=== PATIENT | male | born 1970 | race Caucasian/White ===

== ENCOUNTER 2016-10-15 01:40 | Emergency (ER) | payer OTHER ==
[~2016-10-15] VITALS: Ht 177.8 cm; Wt 84.8 kg
[2016-10-15 01:48] VITALS: BP 159/100
--- NOTE | 2016-10-15 03:09 | NUR ---
PT TAKEN TO [facility]
--- NOTE | 2016-10-15 03:27 | NUR ---
Dr. Mclean evaluating patient
--- NOTE | 2016-10-15 03:33 | NUR ---
46Y/M PATIENT PRESENTS TO ED WITH C/O FEVER AND CHILLS X 1 WK . PT STATES BODYACHES, FEVER, CHILLLS, SORETHROAT, LOSS OF APPETITE. BODYWEAKNESS, FOR 2 WEEKS, HE TOOK IBUPROFEN AT 2130. SKIN IS PINK/WARM/DRY; AAOX4 WITH EVEN AND STEADY GAIT; LUNGS CLEAR BL; HR EVEN AND REGULAR; PT DENIES ANY FEVER, CP, SOB, OR COUGH AT THIS TIME; PATIENT STATES PAIN OF 4/10 AT THIS TIME; VSS; PATIENT POSITIONED FOR COMFORT; HOB ELEVATED; BEDRAILS UP X2; BED DOWN. ER MD MADE AWARE OF PT STATUS.
[2016-10-15] MEDS ORDERED: NACL 0.9% 2,000 ML IV ONE (03:40)
[2016-10-15 03:59] LABS: BASOPHILS # (AUTO) 0.2 K/uL (0.00-0.22); BASOPHILS % (AUTO) 1.1 % (0.0-2.0); EOSINOPHILS # (AUTO) 0.1 K/uL (0-0.4); EOSINOPHILS % (AUTO) 0.8 % (0.0-4.0); HEMATOCRIT 46.5 % (36-52); HEMOGLOBIN 15.6 g/dL (12.0-18.0); LYMPHOCYTES # (AUTO) 2.2 K/uL (2.0-11.5); LYMPHOCYTES % (AUTO) 16.1 % (20.5-51.1); MEAN CORPUSCULAR HEMOGLOBIN 28 pg (27-31); MEAN CORPUSCULAR HGB CONC 33 g/dL (33-37); MEAN CORPUSCULAR VOLUME 84 fL (80-94); MONOCYTES # (AUTO) 1.3 K/uL (0.8-1.0); MONOCYTES % (AUTO) 9.5 % (1.7-9.3); NEUTROPHILS # (AUTO) 10.1 K/uL (1.8-7.7); NEUTROPHILS % (AUTO) 72.5 % (42.2-75.2); PLATELET COUNT (AUTO) 383 K/uL (140-450); RED BLOOD CELL COUNT(AUTO) 5.56 MIL/uL (4.20-6.10); RED CELL DISTRIBUTION WIDTH 12.6 % (11.6-13.7); WHITE BLOOD COUNT (AUTO) 13.9 K/uL (4.8-10.8)
[2016-10-15 04:09] LABS: AMPHETAMINE, URINE POS. ng/ml (NEG <=1000); BARBITURATE, URINE NEG. ng/ml (NEG <=200); BENZODIAZEPINE, URINE NEG. ng/mL (NEG <=200); CANNABINOID, URINE NEG. ng/mL (NEG <=50); COCAINE, URINE NEG. ng/mL (NEG <=300); OPIATE, URINE NEG. ng/mL (NEG <=2000); PHENCYCLIDINE SCREEN,URINE NEG. ng/mL (NEG <=25)
[2016-10-15 04:15] LABS: ALBUMIN 4.5 g/dL (3.4-5.0); ANION GAP 13.5 (8-16); CALCIUM 9.7 mg/dL (8.5-10.1); CARBON DIOXIDE 31.2 mmol/L (21-32); CREATININE 1.1 mg/dL (0.6-1.3); POTASSIUM 3.7 mmol/L (3.5-5.1); TOTAL BILIRUBIN 0.6 mg/dL (0.0-1.0); TOTAL PROTEIN, SERUM 8.4 g/dL (6.4-8.2)
--- NOTE | 2016-10-15 05:45 | NUR ---
BP 166/109, DR. MIKE NOTIFIED.
--- NOTE | 2016-10-15 06:32 | NUR ---
IV removed, catheter intact and site benign. Applied folded 4x4 gauze and tape to stop bleeding.
[2016-10-15 06:35] VITALS: BP 157/105
--- NOTE | 2016-10-15 06:35 | NUR ---
Patient discharged with v/s stable. Written and verbal after care instructions given and explained. Patient alert, oriented and verbalized understanding of instructions. Ambulatory with steady gait. All questions addressed prior to discharge. ID band removed. Patient advised to follow up with PMD. Rx of MOTRIN 800MG TAB 1 TAB 3 TIMES A DAY BY MOUTH, HYDROCHLOROTHIAZIDE 25MG TABLET 1 TAB ONCE A DAY IN THE MORNING BY MOUTH given. Patient educated on indication of medication including possible reaction and side effects. Opportunity to ask questions provided and answered. Addendum: 10/15/16 at [address] MIKE AWARE BP 157/105.
== END 2016-10-15 06:35 | disposition home or self-care (01) ==
LOC: MED 01:40
DX: J06.9 Acute upper respiratory infection, unspecified (principal); I10 Essential (primary) hypertension; R06.00 Dyspnea, unspecified; F15.20 Other stimulant dependence, uncomplicated; F17.200 Nicotine dependence, unspecified, uncomplicated
CPT/HCPCS: 36415; 71020; 80053; 80305; 81002; 83605; 83880; 84443; 84484; 85025; 86703; 87040; 87804; 93005; 96360; 99285; J7030

== ENCOUNTER 2016-11-18 11:46 | Emergency (ER) | payer OTHER ==
[~2016-11-18] VITALS: Ht 175.3 cm; Wt 108.9 kg
[2016-11-18 12:14] VITALS: BP 136/73
--- NOTE | 2016-11-18 13:26 | NUR ---
PATIENT PRESENTS TO ED WITH RECTAL PAIN X2 DAYS WITH SWELLING .PT STATES PAIN IS THROBBING. ENIES ANY MEDICAL HX;PT TOOK MOTRIN BUT DIDN'T HELP W/ THE PAIN;DENIES N/V/D; SKIN IS PINK/WARM/DRY; AAOX4 WITH EVEN AND STEADY GAIT; LUNGS CLEAR BL; HR EVEN AND REGULAR; PT DENIES ANY FEVER, CP, SOB, OR COUGH AT THIS TIME; PATIENT STATES PAIN OF 9/10 AT THIS TIME; PATIENT POSITIONED FOR COMFORT; HOB ELEVATED; BEDRAILS UP X2; BED DOWN. ER MD WILL BE NOTIFIED.
--- NOTE | 2016-11-18 13:35 | NUR ---
DR PEREZ AT BEDSIDE.
[2016-11-18] MEDS ORDERED: KETOROLAC 60 MG/2 ML VIAL IM ONE (13:40)
--- NOTE | 2016-11-18 14:08 | NUR ---
Patient discharged with v/s stable. Written and verbal after care instructions given and explained. Patient alert, oriented and verbalized understanding of instructions. Ambulatory with steady gait. All questions addressed prior to discharge. ID band removed. Patient advised to follow up with PMD. Rx of NORCO AND COLACE given. Patient educated on indication of medication including possible reaction and side effects. Opportunity to ask questions provided and answered.
[2016-11-18 14:16] VITALS: BP 127/69
== END 2016-11-18 14:08 | disposition home or self-care (01) ==
LOC: MED 11:46
DX: K64.4 Residual hemorrhoidal skin tags (principal)
CPT/HCPCS: 96372; 99283; J1885

== ENCOUNTER 2017-01-04 16:59 | Emergency (ER) | payer OTHER ==
[~2017-01-04] VITALS: Ht 180.3 cm; Wt 103.4 kg
[2017-01-04 17:12] VITALS: BP 138/98
--- NOTE | 2017-01-04 19:42 | NUR ---
PATIENT AMBULATED TO ER BED 5.
--- NOTE | 2017-01-04 19:49 | NUR ---
46 Y/O M W/C/O ALLERGIC REACTION TO A [employer] PL[employer] X TODAY. PER PT HE TOOK BENADRYL 50 MG AT HOME AROUND 1600. VSS. KOMAL PADRON MADE AWARE.
--- NOTE | 2017-01-04 19:55 | NUR ---
PATIENT BEING EVALUATED BY DR. PARMAR.
[2017-01-04] MEDS ORDERED: TETRACAINE 0.5% OPTH SOL 2 ML BTL OP ONE (20:10)
[2017-01-04] MEDS ORDERED: TOBRAMYCIN/DEXAMETHASONE OPTH OINT 3.5 GM TUBE OP SCH (20:15)
[2017-01-04] MEDS ORDERED: TETRACAINE 0.5% OPTH SOL 2 ML BTL ONE (20:40)
[2017-01-04 21:48] VITALS: BP 124/82
--- NOTE | 2017-01-04 21:48 | NUR ---
Patient discharged with v/s stable. Written and verbal after care instructions given and explained. Patient alert, oriented and verbalized understanding of instructions. Ambulatory with steady gait. All questions addressed prior to discharge. ID band removed. Patient advised to follow up with PMD OR RETURN TO ER IF CONDITION WORSENS. Rx of TOBRADEX given. Patient educated on indication of medication including possible reaction and side effects. Opportunity to ask questions provided and answered.
== END 2017-01-04 21:48 | disposition home or self-care (01) ==
LOC: MED 16:59
DX: H10.213 Acute toxic conjunctivitis, bilateral (principal)
CPT/HCPCS: 99283

== ENCOUNTER 2017-03-13 13:35 | Outpatient (CLI) | payer OTHER ==
[2017-03-13 14:03] LABS: BASOPHILS # (AUTO) 0.1 K/uL (0.00-0.22); BASOPHILS % (AUTO) 1.5 % (0.0-2.0); EOSINOPHILS # (AUTO) 0.8 K/uL (0-0.4); EOSINOPHILS % (AUTO) 8.5 % (0.0-4.0); HEMATOCRIT 46.3 % (36-52); HEMOGLOBIN 15.1 g/dL (12.0-18.0); LYMPHOCYTES # (AUTO) 2.5 K/uL (2.0-11.5); LYMPHOCYTES % (AUTO) 25.1 % (20.5-51.1); MEAN CORPUSCULAR HEMOGLOBIN 28 pg (27-31); MEAN CORPUSCULAR HGB CONC 33 g/dL (33-37); MEAN CORPUSCULAR VOLUME 85 fL (80-94); MONOCYTES # (AUTO) 1.5 K/uL (0.8-1.0); NEUTROPHILS % (AUTO) 49.9 % (42.2-75.2); PLATELET COUNT (AUTO) 225 K/uL (140-450); RED BLOOD CELL COUNT(AUTO) 5.47 MIL/uL (4.20-6.10); WHITE BLOOD COUNT (AUTO) 9.9 K/uL (4.8-10.8)
[2017-03-13 14:10] LABS: ALBUMIN 3.7 g/dL (3.4-5.0); ANION GAP 9.2 (8-16); CARBON DIOXIDE 30.5 mmol/L (21-32); CREATININE 0.9 mg/dL (0.7-1.3); POTASSIUM 3.7 mmol/L (3.5-5.1); TOTAL BILIRUBIN 0.3 mg/dL (0.0-1.0)
== END 2017-03-13 19:44 | disposition home or self-care (01) ==
LOC: MLB 13:35
PROVIDERS: ATTEND Family Medicine Geriatric Medicine
DX: F10.10 Alcohol abuse, uncomplicated (principal)
CPT/HCPCS: 36415; 80053; 82150; 83690; 85025

== ENCOUNTER 2017-04-08 02:40 | Emergency (ER) | payer OTHER ==
[~2017-04-08] VITALS: Ht 177.8 cm; Wt 108.1 kg
[2017-04-08 02:58] VITALS: BP 144/93
--- NOTE | 2017-04-08 03:04 | NUR ---
ER AT BEDSIDE
--- NOTE | 2017-04-08 03:04 | NUR ---
PT AMBULATED TO ER BED 04
[2017-04-08] MEDS ORDERED: KETOROLAC 60 MG/2 ML VIAL IM ONE (03:10)
[2017-04-08 03:12] LABS: APPEARANCE,URINE CLEAR (CLEAR); BILIRUBIN,URINE NEGATIVE (NEGATIVE); BLOOD, URINE NEGATIVE (NEGATIVE); COLOR,URINE YELLOW (YELLOW); LEUKOCYTE ESTERASE ,URINE NEGATIVE (NEGATIVE); NITRITE, URINE NEGATIVE (NEGATIVE); PH,URINE 5.5 (5.0-9.0); UGLUCOSE NEGATIVE (NEGATIVE)
--- NOTE | 2017-04-08 03:12 | NUR ---
47Y/M PT. PRESENTS TO ED WITH C/O RT. FLANK PAIN ON AND OFF X 2 WKS. DENIES N/V/D OR FEVER. AAO X4, AMBULATORY WITH STEADY GAIT. RESPIRATIONS ROOM AIR, EVEN AND UNLABORED. ABDOMEN ROUND AND DNON DISTENDED. ACTIVE BS X4, C/O PAIN /. VSS, ER MADE AWARE OF PT. STATUS.
[2017-04-08 03:21] LABS: HEMATOCRIT 43.8 % (36-52); HEMOGLOBIN 14.3 g/dL (12.0-18.0); MEAN CORPUSCULAR HEMOGLOBIN 27 pg (27-31); MEAN CORPUSCULAR HGB CONC 33 g/dL (33-37); MEAN CORPUSCULAR VOLUME 84 fL (80-94); PLATELET COUNT (AUTO) 233 K/uL (140-450); RED CELL DISTRIBUTION WIDTH 13.3 % (11.6-13.7); WHITE BLOOD COUNT (AUTO) 8.1 K/uL (4.8-10.8)
[2017-04-08 03:29] LABS: RBC,URINE 0-5 (RARE) /HPF (0-5); WBC,URINE 0-5 (RARE) /HPF (0-5)
[2017-04-08 03:31] LABS: ANION GAP 12.9 (8-16); CARBON DIOXIDE 29.7 mmol/L (21-32); CREATININE 0.9 mg/dL (0.7-1.3); POTASSIUM 3.6 mmol/L (3.5-5.1)
[2017-04-08 03:34] LABS: EOSINOPHILS % (MANUAL) 4 % (0-4); LYMPHOCYTES % (MANUAL) 42 % (20-46); MONOCYTES % (MANUAL) 5 % (5-12)
--- NOTE | 2017-04-08 03:35 | NUR ---
US AT BEDSIDE.
[2017-04-08 03:36] LABS: TOTAL BILIRUBIN 0.4 mg/dL (0.0-1.0)
[2017-04-08 04:14] VITALS: BP 140/95
--- NOTE | 2017-04-08 04:14 | NUR ---
Patient discharged with v/s stable. Written and verbal after care instructions given and explained. Patient verbalized understanding. Ambulatory with steady gait. All questions addressed prior to discharge. Advised to follow up with PMD.
== END 2017-04-08 04:14 | disposition home or self-care (01) ==
LOC: MED 02:40
DX: K76.0 Fatty (change of) liver, not elsewhere classified (principal); F10.99 Alcohol use, unspecified with unspecified alcohol-induced disorder
CPT/HCPCS: 36415; 76705; 80053; 81001; 83690; 85025; 96372; 99285; J1885; Q0092

== ENCOUNTER 2017-04-28 23:15 | Emergency (ER) | payer OTHER ==
[~2017-04-28] VITALS: Ht 175.3 cm; Wt 112.5 kg
[2017-04-28 23:19] VITALS: BP 147/100
--- NOTE | 2017-04-28 23:23 | NUR ---
Patient to bed 11.
[2017-04-28] MEDS ORDERED: NACL 0.9% 1,000 ML IV ONE (23:35)
[2017-04-28] MEDS ORDERED: KETOROLAC 30 MG/ML VIAL IVP ONE (23:35)
--- NOTE | 2017-04-28 23:50 | NUR ---
47/M PRESENTS TO ER C/O LOWER ABDOMINAL PAIN. PT STATES PAIN IN INGUINAL AREA AND LOWER ABDOMEN X4 DAYS. ABDOMEN IS ROUND, SOFT AND TENDER IN LLQ&RLQ, BS ACTIVE X4. PT DENIES N/V/D, FEVER, URINARY FREQUENCY/ BURNING. NO REDNESS OR SWELLING OF AFFECTED AREA NOTED AT THIS TIME. PT TOOK 800MG IBUPROFEN WITH MILD RELIEF. AA&O X4, VSS, ER MD NOTIFED OF PT STATUS.
[2017-04-28 23:59] LABS: HEMOGLOBIN 14.8 g/dL (12.0-18.0); MEAN CORPUSCULAR HEMOGLOBIN 28 pg (27-31); MEAN CORPUSCULAR HGB CONC 33 g/dL (33-37); MEAN CORPUSCULAR VOLUME 85 fL (80-94); PLATELET COUNT (AUTO) 308 K/uL (140-450); RED BLOOD CELL COUNT(AUTO) 5.27 MIL/uL (4.20-6.10); RED CELL DISTRIBUTION WIDTH 13.4 % (11.6-13.7); WHITE BLOOD COUNT (AUTO) 8.9 K/uL (4.8-10.8)
[2017-04-29 00:14] LABS: BASOPHILS % (MANUAL) 1 % (0-2); EOSINOPHILS % (MANUAL) 5 % (0-4); LYMPHOCYTES % (MANUAL) 33 % (20-46); MONOCYTES % (MANUAL) 4 % (5-12)
[2017-04-29 00:16] LABS: ANION GAP 14.5 (8-16); CARBON DIOXIDE 28.4 mmol/L (21-32); CREATININE 0.9 mg/dL (0.7-1.3); POTASSIUM 3.9 mmol/L (3.5-5.1)
[2017-04-29 00:20] LABS: ALBUMIN 4.1 g/dL (3.4-5.0); TOTAL BILIRUBIN 0.3 mg/dL (0.0-1.0)
--- NOTE | 2017-04-29 01:11 | NUR ---
PT IN BED, COMFORT NEEDS MET AT THIS TIME, AWAITING RESULTS OF CT SCAN.
[2017-04-29 02:03] VITALS: BP 159/96
--- NOTE | 2017-04-29 02:04 | NUR ---
Patient discharged with v/s stable. Written and verbal after care instructions given and explained. Patient alert, oriented and verbalized understanding of instructions. Ambulatory with steady gait. All questions addressed prior to discharge. ID band removed. Patient advised to follow up with PMD. Rx of MOTRIN 800MG, TRAMADOL 50MG given. Patient educated on indication of medication including possible reaction and side effects. Opportunity to ask questions provided and answered.
== END 2017-04-29 02:04 | disposition home or self-care (01) ==
LOC: MED 23:15
DX: R10.2 Pelvic and perineal pain (principal)
CPT/HCPCS: 36415; 74176; 80053; 81002; 85025; 96361; 96374; 99285; J1885; J7030